=== PATIENT | female | born 1965 | race Caucasian/White ===

== ENCOUNTER → 2016-07-21 | Outpatient (CLI) | payer OTHER ==
--- NOTE | 2016-07-22 08:32 | REP ---
PELVIC, NON-OB COMPLETE ULTRASOUND: HISTORY: (Two breast CA and pelvic pain). COMPARISON: 11/27/2012, the latest prior. Transvesical and transvaginal imaging was obtained. The uterus measures 6.8 x 3.6 x 5.5 cm. The parenchymal echo pattern is heterogeneous, but there are no discrete masses. The endometrial echo complex measures 9 mm in thickness and is heterogeneous in appearance. There is no free fluid in the cul-de-sac. The right ovary measures 5 x 2.9 x 3 cm. Within the substance of the right ovary there is a 3.8 x 2.4 x 2.5 cm sized anechoic structure which exhibits posterior wall enhancement and increased through transmission consistent with a cyst. No definite septations, mural nodules or papular projections noted. The left ovary measures 3.2 x 1.9 x 2.5 cm. In the substance of the left ovary, there is a 2 x 1.4 x 1.7 cm sized anechoic structure which exhibits posterior wall enhancement and increased through transmission without evidence of septations, mural nodules or papular projections. IMPRESSION: 1. The endometrial echo complex is abnormally thickened. Clinical correlation is recommended. 2. Bilateral ovarian cysts. Two month followup recommended.
== END ==
LOC: M WHC 10:49
PROVIDERS: ATTEND Physician Assistant
DX: R93.8 Abnormal findings on diagnostic imaging of other specified body structures (principal); N83.209 Unspecified ovarian cyst, unspecified side

== ENCOUNTER → 2016-10-06 | Outpatient (CLI) | payer OTHER ==
--- NOTE | 2016-10-06 15:32 | REP ---
Lumbar spine series: Five views. History: Low back pain. Findings: Lumbar vertebral body heights are preserved. Alignment is normal. There is degenerative narrowing and spur formation at the L4-5 and to a lesser extent L3-4, L2-3 and L1-2 levels. Discogenic spurring is seen in the lower thoracic levels as well. Pedicles and posterior elements are intact. There is no evidence of spondylolysis or spondylolisthesis. There is mild sacralization of the left transverse process at L5. Psoas margins are symmetric. Sacrum and SI joints are unremarkable. Impression: Degenerative spondylosis changes. Degenerative disc disease most pronounced at L4-5. Signed by Mohamud Alcala MD 10/06/2016 04:34 P
--- NOTE | 2016-10-06 15:54 | REP ---
SI joint series: Five views. History: Low back and left groin pain. Findings: Five views of the sacrum and SI joints demonstrate intact SI joints. No bony sacral disruption or fracture is seen. No erosive change is noted. Impression: Negative sacrum and SI joint views. Signed by Mohamud Alcala MD 10/06/2016 04:34 P
== END ==
LOC: M WUC 13:34
PROVIDERS: ATTEND Nurse Practitioner Family
DX: M51.36 Other intervertebral disc degeneration, lumbar region (principal); M47.816 Spondylosis without myelopathy or radiculopathy, lumbar region

== ENCOUNTER → 2016-10-16 | Outpatient (CLI) | payer OTHER ==
--- NOTE | 2016-10-16 16:03 | REPMRS ---
Patient History Patient has history of cancer in the right breast at age 50 and had first child at age 32. Family history of breast cancer in mother at age 56, breast cancer in maternal aunt at age 50 or over, breast cancer in paternal aunt at age 50 or over, and pancreatic cancer in paternal aunt at age 50 or over. Malignant radio exam breast specimen, January 13, 2016. Malignant localization of breast nodule of the right breast, January 13, 2016. Malignant radio exam breast specimen of the right breast, December 30, 2015. Malignant stereotatic loc for ea lesion of the right breast, December 30, 2015. Digital Mammo Diagnostic Bilateral: October 16, 2016 - Exam #: [id number] Bilateral CC and MLO view(s) were taken. Technologist: Faby Sharp, Technologist Prior study comparison: December 02, 2015, right breast digital mammo diagnostic unilateral performed at [facility]. November 29, 2015, digital woman screen mammo, performed at [facility]. November 26, 2012, digital woman screen mammo, performed at [facility]. FINDINGS: There are scattered fibroglandular densities. There is a mild amount of residual fibroglandular tissue which is fairly symmetric. There is no interval development of dominant mass, architectural distortion, or clustered microcalcification suggestive of malignancy. The prior anterior right breast calcifications which were malignant on biopsy are no longer visible. No significant scar tissue, skin thickening or any secondary signs of malignancy. Scattered lymph nodes are seen in the left axilla. ASSESSMENT: BI-RADS/ACR category 2 mammogram. Benign finding(s). Recommendation Routine screening mammogram in 1 year (for women over age 40). This mammogram was interpreted with the aid of an FDA-approved computer-aided dectection system. A. Negative x-ray reports should not delay biopsy if a dominant or clinically suspicious mass is present. B. Four to eight percent of cancers are not identified by mammography. C. Adenosis and dense breast may obscure an underlying neoplasm. Electronically Signed By: Oh Hernandez MD 10/16/16 [id number]
== END ==
LOC: M RAD 15:26
PROVIDERS: ATTEND Surgery
DX: Z12.39 Encounter for other screening for malignant neoplasm of breast (principal); Z85.3 Personal history of malignant neoplasm of breast; Z80.3 Family history of malignant neoplasm of breast

== ENCOUNTER → 2016-12-02 | Outpatient (CLI) | payer OTHER ==
[2016-12-02 18:43] LABS: BASO % 0.6 % (0.0-1.0); EOS # 0.1 K/mm3 (0.0-0.50); EOS % 1.4 % (0.0-3.0); LARGE UNSTAINED CELL # 0.3 K/mm3 (0.0-0.4); LARGE UNSTAINED CELL % 3.4 % (0.0-4.0); LYMPH # 3.7 K/mm3 (1.5-4.5); LYMPH % 47.6 % (24.0-44.0); MEAN CORPUSCULAR HEMOGLOBIN 29.3 pg (27.0-33.0); MEAN CORPUSCULAR HGB CONC 34.5 g/dl (32.0-36.5); MEAN CORPUSCULAR VOLUME 85.1 fl (80.0-96.0); MONO # 0.4 K/mm3 (0.0-0.8); MONO % 5.5 % (0.0-5.0); NEUTROPHILS # 3.2 K/mm3 (1.8-7.7); NEUTROPHILS % 41.5 % (36.0-66.0); PLATELET COUNT, AUTOMATED 322 k/mm3 (150-450); RED CELL DISTRIBUTION WIDTH 13.1 % (11.5-14.5); WHITE BLOOD COUNT 7.8 K/mm3 (4.0-10.0)
[2016-12-02 19:28] LABS: ALBUMIN/GLOBULIN RATIO 1.03 (1.00-1.93); ALKALINE PHOSPHATASE 40 U/L (45-117); ALT/SGPT 45 U/L (12-78); ANION GAP 9 MEQ/L (8-16); AST/SGOT 15 U/L (15-37); BILIRUBIN,TOTAL 0.3 MG/DL (0.2-1.0); BLOOD UREA NITROGEN 15 MG/DL (7-18); CARBON DIOXIDE LEVEL 29 MEQ/L (21-32); CHLORIDE LEVEL 107 MEQ/L (98-107); CREATININE FOR GFR 0.79 MG/DL (0.55-1.02); FERRITIN 181 NG/ML (8-252); GLOMERULAR FILTRATION RATE > 60.0 (>51); GLUCOSE, FASTING 107 MG/DL (70-105); MAGNESIUM LEVEL 1.8 MG/DL (1.8-2.4); PERCENT SATURATION 28.7 % (13.2-45.0); PHOSPHORUS LEVEL 3.2 MG/DL (2.5-4.9); POTASSIUM SERUM 4.4 MEQ/L (3.5-5.1); SODIUM LEVEL 145 MEQ/L (136-145); TOTAL IRON BINDING CAPACITY 265 UG/DL (250-450); TOTAL PROTEIN 7.9 GM/DL (6.4-8.2)
[2016-12-04 10:01] LABS: VITAMIN B12 LEVEL 538 PG/ML (247-911)
[2016-12-05 10:49] LABS: PRETREATED FOLATE FOR RBCFOL 12.1 NG/ML
== END ==
LOC: M WUC 13:42
PROVIDERS: ATTEND Surgery
DX: K91.2 Postsurgical malabsorption, not elsewhere classified (principal); Z98.84 Bariatric surgery status

== ENCOUNTER → 2017-05-05 | Outpatient (CLI) | payer OTHER ==
[2017-05-05 11:55] LABS: BASO % 0.5 % (0.0-1.0); EOS # 0.1 10^3/uL (0.0-0.50); EOS % 1.6 % (0.0-3.0); HEMATOCRIT 43.3 % (36.0-47.0); HEMOGLOBIN 14.6 g/dl (12.0-16.0); IMMATURE GRANULOCYTE % 0.1 % (0-3.0); LYMPH # 3.4 10^3/uL (1.5-4.5); LYMPH % 43.1 % (24.0-44.0); MEAN CORPUSCULAR HEMOGLOBIN 28.9 pg (27.0-33.0); MEAN CORPUSCULAR HGB CONC 33.7 g/dl (32.0-36.5); MEAN CORPUSCULAR VOLUME 85.7 fl (80.0-96.0); MONO # 0.7 10^3/uL (0.0-0.8); MONO % 8.6 % (0.0-5.0); NEUTROPHILS # 3.6 10^3/uL (1.8-7.7); NEUTROPHILS % 46.1 % (36.0-66.0); PLATELET COUNT, AUTOMATED 238 10^3/uL (150-450); RED BLOOD COUNT 5.05 10^6/uL (4.00-5.40); RED CELL DISTRIBUTION WIDTH 13.4 % (11.5-14.5); WHITE BLOOD COUNT 7.9 10^3/uL (4.0-10.0)
[2017-05-05 12:03] LABS: HEMATOCRIT 43.3 % (36.0-47.0)
[2017-05-05 12:08] LABS: ALBUMIN/GLOBULIN RATIO 1.05 (1.00-1.93); ALKALINE PHOSPHATASE 64 U/L (45-117); ALT/SGPT 20 U/L (12-78); ANION GAP 9 MEQ/L (8-16); AST/SGOT 9 U/L (7-37); BILIRUBIN,TOTAL 0.3 MG/DL (0.2-1.0); BLOOD UREA NITROGEN 12 MG/DL (7-18); CARBON DIOXIDE LEVEL 29 MEQ/L (21-32); CHLORIDE LEVEL 107 MEQ/L (98-107); CREATININE FOR GFR 0.76 MG/DL (0.55-1.30); FERRITIN 57 NG/ML (8-252); GLOMERULAR FILTRATION RATE > 60.0 (>51); GLUCOSE, FASTING 84 MG/DL (70-100); IRON (FE) 95 UG/DL (50-170); MAGNESIUM LEVEL 2.2 MG/DL (1.8-2.4); PERCENT SATURATION 31.8 % (13.2-45.0); PHOSPHORUS LEVEL 3.6 MG/DL (2.5-4.9); POTASSIUM SERUM 4.3 MEQ/L (3.5-5.1); SODIUM LEVEL 145 MEQ/L (136-145); TOTAL IRON BINDING CAPACITY 299 UG/DL (250-450); TOTAL PROTEIN 7.8 GM/DL (6.4-8.2)
[2017-05-05 12:16] LABS: ESTIMATED AVERAGE GLUCOSE 105 MG/DL (60-110); HEMOGLOBIN A1c 5.3 %
[2017-05-07 11:11] LABS: TOTAL 25(OH) VITAMIN D 27.8 NG/ML (30.0-100.0); VITAMIN B12 LEVEL 439 PG/ML (247-911)
[2017-05-08 11:03] LABS: PRETREATED FOLATE FOR RBCFOL 13.2 NG/ML; RBC FOLATE 640.2 NG/ML (280-791)
== END ==
LOC: M WUC 09:56
DX: K91.2 Postsurgical malabsorption, not elsewhere classified (principal); Z98.84 Bariatric surgery status; E55.9 Vitamin D deficiency, unspecified
CPT/HCPCS: 83550

== ENCOUNTER → 2017-12-07 | Outpatient (CLI) | payer OTHER ==
[2017-12-07 16:00] LABS: BASO % 0.4 % (0.0-1.0); EOS # 0.1 10^3/uL (0.0-0.50); EOS % 1.5 % (0.0-3.0); HEMOGLOBIN 13.9 g/dl (12.0-15.5); IMMATURE GRANULOCYTE % 0.1 % (0-3.0); LYMPH # 4.5 10^3/uL (1.5-4.5); LYMPH % 55.3 % (24.0-44.0); MEAN CORPUSCULAR HEMOGLOBIN 28.8 pg (27.0-33.0); MEAN CORPUSCULAR HGB CONC 33.1 g/dl (32.0-36.5); MEAN CORPUSCULAR VOLUME 87.1 fl (80.0-96.0); MONO # 0.6 10^3/uL (0.0-0.8); MONO % 7.3 % (0.0-5.0); NEUTROPHILS # 2.9 10^3/uL (1.8-7.7); NEUTROPHILS % 35.4 % (36.0-66.0); PLATELET COUNT, AUTOMATED 325 10^3/uL (150-450); RED BLOOD COUNT 4.82 10^6/uL (4.00-5.40); RED CELL DISTRIBUTION WIDTH 13.1 % (11.5-14.5); WHITE BLOOD COUNT 8.1 10^3/uL (4.0-10.0)
[2017-12-07 16:33] LABS: ESTIMATED AVERAGE GLUCOSE 100 MG/DL (60-110); HEMOGLOBIN A1c 5.1 %
[2017-12-07 16:39] LABS: ALKALINE PHOSPHATASE 71 U/L (45-117); ALT/SGPT 18 U/L (12-78); ANION GAP 12 MEQ/L (8-16); AST/SGOT 20 U/L (7-37); BILIRUBIN,TOTAL 0.5 MG/DL (0.2-1.0); BLOOD UREA NITROGEN 15 MG/DL (7-18); CARBON DIOXIDE LEVEL 25 MEQ/L (21-32); CHLORIDE LEVEL 107 MEQ/L (98-107); CREATININE FOR GFR 0.73 MG/DL (0.55-1.30); FERRITIN 64 NG/ML (8-252); GLOMERULAR FILTRATION RATE > 60.0 (>51); GLUCOSE, FASTING 87 MG/DL (70-100); IRON (FE) 74 UG/DL (50-170); MAGNESIUM LEVEL 1.9 MG/DL (1.8-2.4); PERCENT SATURATION 23.6 % (13.2-45.0); PHOSPHORUS LEVEL 3.9 MG/DL (2.5-4.9); POTASSIUM SERUM 4.7 MEQ/L (3.5-5.1); SODIUM LEVEL 144 MEQ/L (136-145); TOTAL 25(OH) VITAMIN D 18.7 NG/ML (30.0-100.0); TOTAL IRON BINDING CAPACITY 313 UG/DL (250-450)
[2017-12-11 13:36] LABS: PRETREATED FOLATE FOR RBCFOL 8.1 NG/ML
== END ==
LOC: M LAB 15:17
DX: K91.2 Postsurgical malabsorption, not elsewhere classified (principal)
CPT/HCPCS: 83550

== ENCOUNTER → 2018-05-16 | Outpatient (CLI) | payer OTHER ==
--- NOTE | 2018-05-16 14:49 | REP ---
Whole body radionuclide bone scan: History: Carcinoma of the right breast. Metastatic to axillary lymph nodes. Technique: 21.1 mCi of technetium 99m MDP is injected and standard whole body bone scan images are acquired. Scintigraphic findings: There is a normal distribution of skeletal tracer with uptake to bilateral kidneys and the urinary bladder. There is no evidence to suggest skeletal metastatic disease. Impression: Negative whole body bone scan. Electronically Signed by Mohamud Alcala MD 05/16/2018 04:33 P
== END ==
LOC: M RAD 08:05
PROVIDERS: ATTEND Surgery
DX: C50.911 Malignant neoplasm of unspecified site of right female breast (principal); C77.3 Secondary and unspecified malignant neoplasm of axilla and upper limb lymph nodes
CPT/HCPCS: 78306; A9503

== ENCOUNTER → 2018-07-17 | Outpatient (CLI) | payer OTHER ==
[2018-07-17 10:16] LABS: BASO # 0.1 10^3/uL (0.0-0.2); BASO % 1.6 % (0.0-1.0); EOS % 0.5 % (0.0-3.0); HEMATOCRIT 38.7 % (36.0-47.0); HEMOGLOBIN 12.8 g/dl (12.0-15.5); LYMPH # 2.7 10^3/uL (1.5-4.5); LYMPH % 33.1 % (24.0-44.0); MEAN CORPUSCULAR HEMOGLOBIN 28.8 pg (27.0-33.0); MEAN CORPUSCULAR HGB CONC 33.1 g/dl (32.0-36.5); MONO # 1.1 10^3/uL (0.0-0.8); MONO % 13.1 % (0.0-5.0); NEUTROPHILS # 4.2 10^3/uL (1.8-7.7); NEUTROPHILS % 51.2 % (36.0-66.0); PLATELET COUNT, AUTOMATED 396 10^3/uL (150-450); RED BLOOD COUNT 4.45 10^6/uL (4.00-5.40); WHITE BLOOD COUNT 8.1 10^3/uL (4.0-10.0)
[2018-07-17 10:44] LABS: ALBUMIN 3.9 GM/DL (3.2-5.2); ALT/SGPT 30 U/L (12-78); BILIRUBIN,TOTAL 0.3 MG/DL (0.2-1.0); BLOOD UREA NITROGEN 16 MG/DL (7-18); CALCIUM LEVEL 8.8 MG/DL (8.5-10.1); CARBON DIOXIDE LEVEL 29 MEQ/L (21-32); CHLORIDE LEVEL 107 MEQ/L (98-107); CREATININE FOR GFR 0.71 MG/DL (0.55-1.30); GLOMERULAR FILTRATION RATE > 60.0 (>51); GLUCOSE, FASTING 83 MG/DL (70-100); POTASSIUM SERUM 4.4 MEQ/L (3.5-5.1); SODIUM LEVEL 142 MEQ/L (136-145); TOTAL PROTEIN 6.9 GM/DL (6.4-8.2)
== END ==
LOC: M LAB 09:21
PROVIDERS: ATTEND Nurse Practitioner
DX: C50.111 Malignant neoplasm of central portion of right female breast (principal)

== ENCOUNTER → 2018-08-07 | Outpatient (CLI) | payer OTHER ==
[2018-08-07 09:33] LABS: BASO # 0.1 10^3/uL (0.0-0.2); BASO % 1.5 % (0.0-1.0); HEMOGLOBIN 12.7 g/dl (12.0-15.5); LYMPH % 24.5 % (24.0-44.0); MEAN CORPUSCULAR HEMOGLOBIN 30.4 pg (27.0-33.0); MEAN CORPUSCULAR HGB CONC 33.4 g/dl (32.0-36.5); MEAN CORPUSCULAR VOLUME 90.9 fl (80.0-96.0); MONO # 1.2 10^3/uL (0.0-0.8); MONO % 13.9 % (0.0-5.0); NEUTROPHILS # 4.9 10^3/uL (1.8-7.7); NEUTROPHILS % 59.6 % (36.0-66.0); PLATELET COUNT, AUTOMATED 268 10^3/uL (150-450); RED BLOOD COUNT 4.18 10^6/uL (4.00-5.40); WHITE BLOOD COUNT 8.3 10^3/uL (4.0-10.0)
[2018-08-07 10:01] LABS: ALBUMIN 3.5 GM/DL (3.2-5.2); ALT/SGPT 24 U/L (12-78); BILIRUBIN,TOTAL 0.3 MG/DL (0.2-1.0); BLOOD UREA NITROGEN 11 MG/DL (7-18); CALCIUM LEVEL 8.8 MG/DL (8.5-10.1); CARBON DIOXIDE LEVEL 29 MEQ/L (21-32); CHLORIDE LEVEL 106 MEQ/L (98-107); CREATININE FOR GFR 0.72 MG/DL (0.55-1.30); GLOMERULAR FILTRATION RATE > 60.0 (>51); GLUCOSE, FASTING 89 MG/DL (70-100); POTASSIUM SERUM 4.8 MEQ/L (3.5-5.1); SODIUM LEVEL 141 MEQ/L (136-145); TOTAL PROTEIN 6.6 GM/DL (6.4-8.2)
== END ==
LOC: M LAB 08:53
DX: C50.111 Malignant neoplasm of central portion of right female breast (principal)

== ENCOUNTER → 2018-08-28 | Outpatient (CLI) | payer OTHER ==
[2018-08-28 10:04] LABS: BASO # 0.1 10^3/uL (0.0-0.2); BASO % 0.8 % (0.0-1.0); HEMATOCRIT 36.4 % (36.0-47.0); HEMOGLOBIN 11.6 g/dl (12.0-15.5); LYMPH # 1.9 10^3/uL (1.5-4.5); LYMPH % 19.3 % (24.0-44.0); MEAN CORPUSCULAR HEMOGLOBIN 29.4 pg (27.0-33.0); MEAN CORPUSCULAR HGB CONC 31.9 g/dl (32.0-36.5); MEAN CORPUSCULAR VOLUME 92.2 fl (80.0-96.0); MONO # 1.1 10^3/uL (0.0-0.8); MONO % 11.7 % (0.0-5.0); NEUTROPHILS # 6.5 10^3/uL (1.8-7.7); NEUTROPHILS % 67.9 % (36.0-66.0); PLATELET COUNT, AUTOMATED 312 10^3/uL (150-450); RED BLOOD COUNT 3.95 10^6/uL (4.00-5.40); WHITE BLOOD COUNT 9.6 10^3/uL (4.0-10.0)
[2018-08-28 10:29] LABS: ALBUMIN 3.5 GM/DL (3.2-5.2); ALT/SGPT 15 U/L (12-78); BILIRUBIN,TOTAL 0.3 MG/DL (0.2-1.0); BLOOD UREA NITROGEN 14 MG/DL (7-18); CALCIUM LEVEL 9.1 MG/DL (8.5-10.1); CARBON DIOXIDE LEVEL 29 MEQ/L (21-32); CHLORIDE LEVEL 108 MEQ/L (98-107); CREATININE FOR GFR 0.63 MG/DL (0.55-1.30); GLOMERULAR FILTRATION RATE > 60.0 (>51); GLUCOSE, FASTING 87 MG/DL (70-100); POTASSIUM SERUM 4.6 MEQ/L (3.5-5.1); SODIUM LEVEL 143 MEQ/L (136-145)
== END ==
LOC: M LAB 09:31
PROVIDERS: ATTEND Nurse Practitioner
DX: C50.111 Malignant neoplasm of central portion of right female breast (principal)

== ENCOUNTER → 2018-08-28 | Outpatient (CLI) | payer OTHER ==
[2018-08-28 10:25] LABS: HEMOGLOBIN A1c 5.6 %
[2018-08-28 10:32] LABS: CHOLESTEROL LEVEL 189 MG/DL (<200); CHOLESTEROL RISK RATIO 3.705 (<5); FERRITIN 181 NG/ML (8-252); HDL CHOLESTEROL 51 MG/DL (>40); IRON (FE) 39 UG/DL (50-170); LDL CHOLESTEROL 118 MG/DL (<100); NON-HDL-C 138 MG/DL; TRIGLYCERIDES LEVEL 102 MG/DL (<150)
[2018-08-28 10:49] LABS: TOTAL 25(OH) VITAMIN D 23.6 NG/ML (30.0-100.0)
[2018-08-28 11:18] LABS: VITAMIN B12 LEVEL > 2000 PG/ML (247-911)
== END ==
LOC: M LAB 09:24
PROVIDERS: ATTEND Nurse Practitioner Family
DX: Z00.00 Encounter for general adult medical examination without abnormal findings (principal); Z98.84 Bariatric surgery status

== ENCOUNTER → 2018-09-17 | Outpatient (CLI) | payer OTHER ==
[~2018-09-17] MED LIST: SILV40CR EXT
--- NOTE | 2018-09-18 11:00 | RADONC ---
RADIATION ONCOLOGY CONSULTATION DATE: 09/17/2018 CHART NUMBER: [id number] DIAGNOSIS: Infiltrating ductal carcinoma, right breast, status post right modified radical mastectomy; status post simple mastectomy, left. The patient was noted to be ER positive (05/02/2018). STAGE: [id number], group stage IA. ICD-10 CODE: C50.111 ECOG PERFORMANCE STATUS: 0 The patient was noted to be BRCA2 positive. 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 She went on to develop a mass in the right breast as she was being followed every 6 months with an MRI scan and mammography. An ultrasound confirmed the presence of an abnormality in the subareolar area or the central portion of the right breast and she underwent a bilateral mastectomy. The surgery was actually a modified radical right mastectomy as well as a simple left mastectomy as the patient was noted to be BRCA2 positive. These surgeries were performed in April of this year and the patient was noted to have a lymph node which was positive. A total of 12 lymph nodes were examined, but one contained a metastatic focus or contained evidence of metastatic disease. She underwent chemotherapy in the form of docetaxel and cyclophosphamide for approximately four cycles and this was performed at the [facility]. She has a very strong history of cancer in her family including her father with liver cancer, uncles with pancreatic cancer, an aunt with pancreatic cancer on both sides of the family. She was being followed by Dr. Ariana Ramos in [place]. She completed the chemotherapy and did quite well with the chemotherapy with only a minimal amount of changes including some nail bed tenderness and changes. She did not have any significant neuropathy or significant nausea or vomiting. After the completion of her chemotherapy, she has been referred to us for evaluation of chest wall and peripheral lymphatic radiation to prevent a local regional recurrence. 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 SURGICAL PROCEDURES: Gastric sleeve in 2017 at the age of 50. Hysterectomy 07/2017 at the age of 51. Mastectomy on 05/22/2018 at the age of 52. GYNECOLOGIC HISTORY: She used hormonal oral contraceptives for 12 years. : She is not one time and gave at the age of 32. Her first menstrual period was at the age of 11. SOCIAL HISTORY: She has quit smoking for approximately 3 years, but smoked one pack per day for 27 years. Alcohol consumption: She never has consumed alcohol. ALLERGIES: No known drug allergies. MEDICATIONS: She currently does not take any regular medications. MARITAL HISTORY: She is and has one child who is healthy. OCCUPATIONAL HISTORY: She works as a biomedical instrument technician. REVIEW OF SYSTEMS: RESPIRATORY: Denies coughing, dyspnea, hemoptysis, hiccups, pleuritic pain or wheezing. PSYCHIATRIC: Denies delusions, hallucination mood swings, depression or euphoria. NEUROLOGIC: Denies disorientation, dizziness. She has a normal gait. Denies having headaches, insomnia, memory loss, neuropathy, paralysis, seizures, sensory problems or a stroke. MUSCULOSKELETAL: Denies arthritis, bone pain, joint pain, muscle weakness or difficulty with range of motion. INTEGUMENTARY: Denies blisters. She does note complete alopecia secondary to her chemotherapy. Denies any bruising, dry skin, facial burning. She has tenderness in her fingernails was some discoloration. She denies photosensitivity, pruritus or significant rash or urticaria. HEAD: She does note alopecia. GENITOURINARY: She denies dysuria, frequency, genital masses, hematuria, incontinence, nocturia, renal stone disease, sexual dysfunction, urgency, changes in urine color, vaginal discharge or vaginal spotting. GASTROINTESTINAL: Denies changes in her bowel habits, constipation, diarrhea, heartburn, hematemesis, hematochezia, hemorrhoids, melena, nausea, pain, early satiety or vomiting. ENT: Denies ear pain, epistaxis, esophagitis, decreased hearing, mouth dryness, oral bleeding, otitis, sinusitis, sputum production, stomatitis, alteration of taste or tinnitus. ENDOCRINE: Denies diabetes, hot flashes, menstrual irregularities or thyroid disease. CONSTITUTIONAL: Denies decreased appetite or fatigue, fevers, lethargy, malaise, night sweats, rigors or weight change. CARDIOVASCULAR: Denies arrhythmias chest pain, dyspnea, edema, orthopnea or palpitations. BREASTS: She has had a bilateral mastectomy, see HPI. PHYSICAL EXAMINATION: VITALS: O2 saturation 99%. Diastolic 87, systolic 143, respirations 18, pulse 82, temperature 98.3, weight 185.6, height 63. HEENT: Normocephalic except for alopecia. EOMs intact. PERRLA. Fundi benign. LYMPHATICS: No palpable peripheral lymphadenopathy is noted in the cervical, supraclavicular, axillary or inguinal lymph node chains. LUNGS: Clear to auscultation and percussion. BREASTS: Bilateral mastectomy with no evidence of local regional recurrence. The incisions are well-healed. LUNGS: Clear to auscultation and percussion. HEART: Regular without murmurs. ABDOMEN: Without evidence of hepatomegaly, masses, deep abdominal tenderness. EXTREMITIES: Without cyanosis, clubbing or edema. NEUROLOGIC EXAMINATION: Physiologic and nonfocal. LYMPHATICS: No palpable peripheral lymphadenopathy is appreciated. IMPRESSION: Infiltrating ductal carcinoma, right breast with a 1.3 cm primary she is status post right modified radical mastectomy and 12 lymph nodes were recovered, one of which contained evidence of metastatic disease. There was evidence that the tumor was a grade 2 without skin or nipple involvement. Extranodal extension was present. The left breast was removed for prophylactic considerations being that the patient was at high risk. The primary tumor was located in the retroareolar area, pathologic stage [id number]. PLAN: We would recommend a course of local regional radiotherapy to be given in an adjuvant setting following her chemotherapy. We would be treating both the chest wall and peripheral lymphatics to a dose of approximately 4800 cGy to 5040 cGy as well as the lymph node sites. Thereafter, consideration will be given to boost the primary scar site on the right chest wall. The indications, possible side effects of radiotherapy have been explained in detail to the patient including acute and chronic skin toxicities, increased possibility of rib fractures (remote), radiation pneumonitis, fatigue, and possible failure to control tumor. She realizes the potential side effects and possibilities of outcome and is willing to proceed as outlined as stated above. Thank you for referring this very ledy lady to us and allowing us the opportunity of participation in her overall management. Most Sincerely, JOSEMANUEL
== END ==
LOC: M ONCR 12:39
PROVIDERS: ATTEND Radiology Radiation Oncology
DX: C77.3 Secondary and unspecified malignant neoplasm of axilla and upper limb lymph nodes (principal); Z85.3 Personal history of malignant neoplasm of breast; Z90.13 Acquired absence of bilateral breasts and nipples

== ENCOUNTER → 2018-10-02 | Outpatient (CLI) | payer OTHER ==
[2018-10-02 09:44] LABS: BASO # 0.1 10^3/uL (0.0-0.2); BASO % 1.2 % (0.0-1.0); EOS % 0.2 % (0.0-3.0); HEMATOCRIT 38.4 % (36.0-47.0); HEMOGLOBIN 12.1 g/dl (12.0-15.5); LYMPH # 1.6 10^3/uL (1.5-4.5); LYMPH % 39.5 % (24.0-44.0); MEAN CORPUSCULAR HEMOGLOBIN 28.6 pg (27.0-33.0); MEAN CORPUSCULAR HGB CONC 31.5 g/dl (32.0-36.5); MEAN CORPUSCULAR VOLUME 90.8 fl (80.0-96.0); MONO # 0.6 10^3/uL (0.0-0.8); NEUTROPHILS # 1.8 10^3/uL (1.8-7.7); NEUTROPHILS % 43.6 % (36.0-66.0); PLATELET COUNT, AUTOMATED 280 10^3/uL (150-450); RED BLOOD COUNT 4.23 10^6/uL (4.00-5.40); WHITE BLOOD COUNT 4.1 10^3/uL (4.0-10.0)
[2018-10-02 10:11] LABS: ALBUMIN 3.8 GM/DL (3.2-5.2); ALT/SGPT 18 U/L (12-78); BILIRUBIN,TOTAL 0.3 MG/DL (0.2-1.0); BLOOD UREA NITROGEN 16 MG/DL (7-18); CALCIUM LEVEL 9.3 MG/DL (8.5-10.1); CARBON DIOXIDE LEVEL 30 MEQ/L (21-32); CHLORIDE LEVEL 109 MEQ/L (98-107); CREATININE FOR GFR 0.71 MG/DL (0.55-1.30); GLOMERULAR FILTRATION RATE > 60.0 (>51); GLUCOSE, FASTING 89 MG/DL (70-100); POTASSIUM SERUM 4.9 MEQ/L (3.5-5.1); SODIUM LEVEL 142 MEQ/L (136-145)
== END ==
LOC: M LAB 08:47
PROVIDERS: ATTEND Internal Medicine
DX: C50.111 Malignant neoplasm of central portion of right female breast (principal)

== ENCOUNTER → 2018-10-16 | Outpatient (RCR) | payer OTHER ==
--- NOTE | 2018-09-29 12:38 | RADONC ---
RADIATION ONCOLOGY SIMULATION NOTE DATE OF SERVICE: 09/27/2018 CHART NUMBER: [id number] Ms. Jimenez was taken to the CT scan for CT simulation of her right chest wall field and supraclavicular region. CT was accomplished without difficulty or discomfort. Radiation treatment planning is underway and radiation treatments will begin subsequently. An immobilization device was created and will be used throughout the course of treatment. It was created without difficulty or discomfort. I was physically present throughout the course of CT simulation.
--- NOTE | 2018-10-15 10:51 | RADONC ---
RADIATION ONCOLOGY PROGRESS NOTE: DATE: 10/14/2018 CHART NUMBER: [id number] Ms. Jimenez is thus far at a dose of 720 cGy to her right chest wall and was last treated on Sunday10/11/2018. The patient did not come in for treatment today due to personal issues. As of Sunday she had been tolerating her treatments quite well with no complaints related to her radiation therapy. On physical exam as of Sunday the patient's skin was in excellent condition with no evidence of radiation change present. There was no moist or dry desquamation. The patient is scheduled to resume radiation tomorrow and we will continue to follow her closely.
== END ==
LOC: M ONCR 09-27 10:47
PROVIDERS: ATTEND Radiology Radiation Oncology
DX: C50.111 Malignant neoplasm of central portion of right female breast (principal)

== ENCOUNTER → 2018-11-01 | Outpatient (CLI) | payer OTHER ==
--- NOTE | 2018-11-04 09:43 | DEXA ---
AP SPINE L1 - L4 1.254 0.5 1.1 LT FEMUR TOTAL 0.895 -0.9 -0.3 LT NECK 0.880 -1.1 -0.2 RT FEMUR TOTAL -0.933 -0.6 0.3 RT NECK 0.908 -0.9 0.0 TOTAL BODY TOTAL OTHER COMMENTS: Normal bone densitometry of the spine. Normal bone densitometry of the right hip. There is low bone density of the left hip. FOLLOW-UP: Recommendation for the next bone density exam: 2 years. JOSEMANUEL
== END ==
LOC: M WHC 08:45
PROVIDERS: ATTEND Internal Medicine
DX: C50.111 Malignant neoplasm of central portion of right female breast (principal)

== ENCOUNTER 2018-11-12 13:00 | Outpatient (RCR) | payer OTHER ==
--- NOTE | 2018-10-22 08:22 | RADONC ---
RADIATION ONCOLOGY PROGRESS NOTE DATE: 10/21/2018 CHART #: [id number] Mrs. Jimenez with a diagnosis of infiltrating ductal carcinoma involving the right breast status post right modified radical mastectomy is currently receiving adjuvant radiotherapy. Her current dose is 1620 cGy of a proposed 4860 cGy to the chest wall and peripheral lymphatics and she appears to be doing well with no complaints referable to her disease or to her treatments. REVIEW OF SYSTEMS: She denies any nausea, vomiting, coughing, sputum production or hemoptysis. Her energy level is such that she is able to maintain most day-to-day activities without any alteration of her lifestyle. She denies any skin reaction. The remainder of the review of systems is unchanged. EXAMINATION FINDINGS: The skin within the irradiated volume shows no evidence of erythema and certainly no focal desquamation. There is no palpable peripheral lymphadenopathy. No evidence of chest wall recurrence is noted. The remainder of the physical examination is unchanged. IMPRESSION: Tolerating therapy well. PLAN: Treatments to continue.
--- NOTE | 2018-10-30 10:16 | RADONC ---
RADIATION ONCOLOGY PROGRESS NOTE DATE OF SERVICE: 10/28/2018 CHART #: [id number] Mrs. Jimenez with a diagnosis of an infiltrating ductal carcinoma involving the right breast status post right modified radical mastectomy is currently receiving radiotherapy and her current dose of radiotherapy is 2520 cGy of a proposed 5040 cGy and reevaluate as to a boost. She is being treated to the chest wall and peripheral lymphatics. Thus far, she has no complaints referable to her disease or to her treatments. REVIEW OF SYSTEMS: She denies any nausea, vomiting, coughing, sputum production or hemoptysis. Her energy level is such that she is able to maintain most day-to-day activities without any alteration of her lifestyle. She mentions hyperpigmentation and a very minimal skin reaction secondary to the radiotherapy. The remainder of the review of systems is unchanged. EXAMINATION FINDINGS: The skin within the irradiated volume shows some hyperpigmentation and a minimal erythematous blush without evidence of desquamation. No masses are palpable on the chest wall and there is no palpable peripheral lymphadenopathy. The remainder of the physical examination is unchanged. IMPRESSION: Tolerating therapy well. PLAN: Treatments to continue.
--- NOTE | 2018-11-07 09:42 | RADONC ---
RADIATION ONCOLOGY PROGRESS NOTE DATE: 11/04/2018 CHART NUMBER: [id number] Ms. Jimenez is presently at a dose of 3420 cGy to her right chest wall and is tolerating treatments quite well at this point with no complaints related to her radiation therapy. She is having no skin or other discomfort. The patient's review of systems is noncontributory. She denies nausea, vomiting, fevers, chills, night sweats, diplopia, headaches, anxiety or depression, anorexia, weight loss, visual disturbances, chest pain, urinary or bowel difficulties, bone pain, or neurological problems. PHYSICAL EXAMINATION: The patient's skin is in good condition with no evidence of moist or dry desquamation. The remainder of her physical exam remains unchanged. Ms. Jimenez is tolerating treatments quite well, and radiation will continue as scheduled.
[2018-11-12] MEDS ORDERED: SILV40CR EXT (15:03)
--- NOTE | 2018-11-13 08:33 | RADONC ---
RADIATION ONCOLOGY PROGRESS NOTE DATE: 11/11/2018 CHART NUMBER: [id number] Ms. Jimenez is thus far at a dose of 4140 cGy to her right chest wall and was last treated on 11/07/2018. The patient was scheduled to come in today but cancelled her treatment for personal reasons. We should be seeing her tomorrow. As of last week, she had been doing quite well with her radiation. Her skin was in good condition. Once again, the patient did not show up for treatment today and should resume treatments tomorrow.
--- NOTE | 2018-11-14 09:11 | RADONC ---
RADIATION ONCOLOGY PROGRESS NOTE DATE: 11/12/2018 CHART NUMBER: [id number] Ms. Jimenez was brought in for clinical setup and treatment planning of her electron boost. The patient came in complaining of discomfort in her axillary region and on physical exam there are some areas of dried and moist desquamation present. In light of this, I have recommended that she take a short treatment break and I am giving her off this week. Radiation scheduled to resume next week. I have cancelled her electron setup simulation at this time and it will be rescheduled for next week. In addition, I have sent a prescription for Silvadene to be applied topically.
== END 2018-11-16 ==
LOC: M ONCR 13:00
PROVIDERS: ATTEND Radiology Radiation Oncology
DX: C50.111 Malignant neoplasm of central portion of right female breast (principal)

== ENCOUNTER 2018-12-02 12:49 | Outpatient (RCR) | payer OTHER ==
--- NOTE | 2018-11-26 09:05 | RADONC ---
RADIATION ONCOLOGY PROGRESS NOTE DATE: 11/25/2018 CHART #: [id number] Mrs. Jimenez with a diagnosis of breast cancer is currently receiving local regional radiotherapy to the right chest wall and right supraclavicular area. Her current dose is 4860 cGy of an anticipated 5040 cGy. Thereafter, she will receive an additional 900 cGy to a chest wall boost. Thus far, she has tolerated her radiotherapy reasonably well, denying any nausea, vomiting, coughing, sputum production or hemoptysis. Her energy level is such that she is able to maintain most of her day-to-day activities without any alteration of her lifestyle. She does have skin reaction, a mild to moderate skin reaction, but after having used the Silvadene cream this issue has largely improved. No other issues related to her treatments are reported. EXAMINATION FINDINGS: The skin within the irradiated volume shows a brisk erythematous blush without focal desquamation. There is no palpable peripheral lymphadenopathy. Lungs are clear. Heart regular without murmurs. Abdomen negative. IMPRESSION: Tolerating therapy well. PLAN: Treatments to continue.
--- NOTE | 2018-12-04 14:19 | RADONC ---
RADIATION ONCOLOGY TREATMENT SUMMARY DATE: 12/02/2018 CHART NUMBER: [id number] DIAGNOSIS: Right breast cancer. STAGE: IA, TA1c, N0, M0. ECOG PERFORMANCE STATUS: 0. TREATMENT SUMMARY: Ms. Jimenez is a very pleasant 52-year-old white female with the diagnosis of what appears to be a stage IA, T1c, N0, M0, infiltrating ductal carcinoma of the right breast who presented to us status post modified radical mastectomy and chemotherapy for consideration of postoperative radiation therapy. We treated the patient to the right chest wall for a total dose of 5040 cGy delivered in 28 fractions of 180 cGy each over 48 elapsed days from 10/08/2018 through 11/25/2018. The patient's right chest wall was treated on the linear accelerator utilizing a 3-D conformal technique with combination of 15 X and 6 X photons. Following completion of 5040 cGy to the entire chest wall the primary site was treated for an additional 900 cGy delivered in five fractions of 180 cGy each over six elapsed days from 11/26/2018 through 12/02/2018. This brought the primary site to a total dose of 5940 cGy delivered in 33 fractions over 54 elapsed days from 10/08/2018 through 12/02/2018. In addition, we treated these lymph node drainage sites for a dose of 4860 cGy delivered in 27 fractions of 180 cGy each over 45 elapsed days from 10/08/2018 through 11/22/2018. The lymph node drainage sites were treated utilizing a combination of 6 X and 15 X photons and a 3-D conformal technique. Ms. Jimenez tolerated her treatments quite well and was able complete therapy as prescribed. She is scheduled to see me again in 1 month for further followup and will continue to be followed by her other physicians as well. cc: MD Domenic Raman MD Edward J Wyluda, DO
== END 2018-12-16 ==
LOC: M ONCR 12:49
PROVIDERS: ATTEND Radiology Radiation Oncology
DX: C50.111 Malignant neoplasm of central portion of right female breast (principal)

== ENCOUNTER → 2019-01-01 | Outpatient (CLI) | payer OTHER ==
--- NOTE | 2019-01-02 14:36 | RADONC ---
RADIATION ONCOLOGY FOLLOWUP NOTE DATE: 01/01/2019 CHART NUMBER: [id number] DIAGNOSIS: Right breast cancer. STAGE: IA, [id number]. ECOG PERFORMANCE STATUS: 0. FOLLOWUP NOTE: Ms. Jimenez is a very pleasant 53-year-old white female with the diagnosis of a stage IA, [id number], moderately differentiated invasive ductal carcinoma of the right breast who is presenting to us today for routine followup visit 1 month post completion of external beam radiation therapy. The patient presents today reporting that she is doing quite well with no complaints at this time related to her radiation therapy or disease. She has no chest wall discomfort or other problems. The patient's review of systems is noncontributory. She denies nausea, vomiting, fevers, chills, night sweats, diplopia, headaches, anxiety or depression, anorexia, weight loss, visual disturbances, chest pain, urinary or bowel difficulties, bone pain, or neurological problems. PHYSICAL EXAMINATION: The patient is a well-developed, well-nourished, female in no acute distress. HEENT exam is normocephalic, atraumatic. Extraocular movements are intact. There is no palpable cervical, supraclavicular, infraclavicular, axillary, or inguinal lymphadenopathy present. Lungs are clear to auscultation and percussion. Heart has a regular rate and rhythm. Abdomen is benign with no hepatosplenomegaly, masses, or tenderness. Breast examination reveals bilateral mastectomy scars present. There is no evidence of nodularity, ulceration, or recurrent disease. Skeletal examination reveals no tenderness to pressure or percussion of the bony skeleton. Extremities reveal no clubbing, cyanosis, or edema. Neurologic exam is grossly intact, as is the remainder of the physical examination. ASSESSMENT: The patient is clinically GILBERTO at this time. She is being followed closely by her other physicians and is therefore being discharged from my followup except on an as needed basis. cc: MD Keith Raman,
== END ==
LOC: M ONCR 13:55
PROVIDERS: ATTEND Radiology Radiation Oncology
DX: C50.111 Malignant neoplasm of central portion of right female breast (principal)

== ENCOUNTER → 2019-12-12 | Outpatient (CLI) | payer OTHER ==
[2019-12-12 07:24] LABS: HEMATOCRIT 44.4 % (36.0-47.0); HEMOGLOBIN 14.6 g/dl (12.0-15.5); MEAN CORPUSCULAR HEMOGLOBIN 28.6 pg (27.0-33.0); MEAN CORPUSCULAR HGB CONC 32.9 g/dl (32.0-36.5); MEAN CORPUSCULAR VOLUME 86.9 fl (80.0-96.0); PLATELET COUNT, AUTOMATED 273 10^3/uL (150-450); RED BLOOD COUNT 5.11 10^6/uL (4.00-5.40); WHITE BLOOD COUNT 5.7 10^3/uL (4.0-10.0)
[2019-12-12 07:47] LABS: ALBUMIN 3.9 GM/DL (3.2-5.2); ALT/SGPT 20 U/L (12-78); BILIRUBIN,TOTAL 0.4 MG/DL (0.2-1.0); BLOOD UREA NITROGEN 14 MG/DL (7-18); CALCIUM LEVEL 9.5 MG/DL (8.5-10.1); CARBON DIOXIDE LEVEL 28 MEQ/L (21-32); CHLORIDE LEVEL 108 MEQ/L (98-107); CHOLESTEROL LEVEL 195 MG/DL (<200); CHOLESTEROL RISK RATIO 2.671 (<5); CREATININE FOR GFR 0.77 MG/DL (0.55-1.30); FERRITIN 48 NG/ML (8-252); GLOMERULAR FILTRATION RATE > 60.0 (>51); GLUCOSE, FASTING 88 MG/DL (70-100); HDL CHOLESTEROL 73 MG/DL (>40); LDL CHOLESTEROL 109 MG/DL (<100); NON-HDL-C 122 MG/DL; PHOSPHORUS LEVEL 4.3 MG/DL (2.5-4.9); SODIUM LEVEL 143 MEQ/L (136-145); TOTAL PROTEIN 7.4 GM/DL (6.4-8.2); TRIGLYCERIDES LEVEL 63 MG/DL (<150)
[2019-12-12 10:09] LABS: HEMOGLOBIN A1c 5.1 %
[2019-12-12 10:54] LABS: FOLATE 8.2 NG/ML (>5.4); TOTAL 25(OH) VITAMIN D 44.4 NG/ML (30.0-100.0); VITAMIN B12 LEVEL 238 PG/ML (247-911)
== END ==
LOC: M LAB 06:49
PROVIDERS: ATTEND Family Medicine
DX: K91.2 Postsurgical malabsorption, not elsewhere classified (principal); D50.9 Iron deficiency anemia, unspecified; E55.9 Vitamin D deficiency, unspecified

== ENCOUNTER → 2019-12-17 | Outpatient (RCR) | payer OTHER | LOC: M PT 12-12 16:15 | PROVIDERS: ATTEND Surgery | DX: C50.911 Malignant neoplasm of unspecified site of right female breast (principal) ==

== ENCOUNTER 2020-01-02 16:30 | Outpatient (RCR) | payer OTHER | END 2020-01-17 | LOC: M PT 16:30 | PROVIDERS: ATTEND Surgery | DX: C50.911 Malignant neoplasm of unspecified site of right female breast (principal); Z91.89 Other specified personal risk factors, not elsewhere classified ==

== ENCOUNTER → 2020-09-24 | Outpatient (CLI) | payer OTHER | LOC: M PLARAD 08:39 | PROVIDERS: ATTEND Internal Medicine | DX: C50.111 Malignant neoplasm of central portion of right female breast (principal) ==

== ENCOUNTER → 2020-09-24 | Outpatient (CLI) | payer OTHER | LOC: M PLAIMG 10:41 | PROVIDERS: ATTEND Internal Medicine | DX: C50.111 Malignant neoplasm of central portion of right female breast (principal) ==

== ENCOUNTER → 2020-11-02 | Outpatient (CLI) | payer OTHER ==
--- NOTE | 2020-11-02 15:36 | DEXAMM ---
INDICATION: C50.111. COMPARISON: 11/01/2018. TECHNIQUE: Bone density was measured using dual-energy x-ray absorptiometry (DEXA). FINDINGS: AP SPINE L1-L4 BMD 1.207 g/cm2 Young Adult T-Score 0.1 Age Matched Z-Score 0.9. LT FEMUR, TOTAL BMD 0.914 g/cm2 Young Adult T-Score -0.7 Age Matched Z-Score -0.1. LT NECK BMD 0.830 g/cm2 Young Adult T-Score -1.5 Age Matched Z-Score -0.5. RT FEMUR, TOTAL BMD 0.956 g/cm2 Young Adult T-Score -0.4 Age Matched Z-Score 0.2. RT NECK BMD 0.875 g/cm2 Young Adult T-Score -1.2 Age Matched Z-Score -0.2. IMPRESSION: There is normal bone density of the spine. There is low bone density of the left hip. There is low bone density of the right hip. The density of the spine has decreased 3.7% since the initial exam on 11/01/2018. The density of the left hip has increased 2.1% since initial exam on 11/01/2018. The density of the right hip has increased 2.5% since the initial exam on 11/01/2018. FOLLOW-UP: Recommendation for the next bone density exam: 2 years. <Electronically signed by Simone Kent > 11/02/20 [id number]
== END ==
LOC: M WHC 09:53
PROVIDERS: ATTEND Internal Medicine
DX: C50.111 Malignant neoplasm of central portion of right female breast (principal)

== ENCOUNTER → 2021-05-03 | Outpatient (REF) | payer OTHER | LOC: M SFHCPLAZ 12:54 | PROVIDERS: ATTEND Physician Assistant | DX: R39.9 Unspecified symptoms and signs involving the genitourinary system (principal) ==

== ENCOUNTER → 2022-08-31 | Outpatient (REF) | payer OTHER ==
[2022-08-31 11:21] LABS: LIPASE 31 U/L (12-53)
[2022-08-31 11:23] LABS: ALKALINE PHOSPHATASE 74 U/L (46-116); ALT/SGPT 22 U/L (7.0-40); AST/SGOT 11 U/L (<34); BILIRUBIN,TOTAL 0.5 MG/DL (0.3-1.2); BLOOD UREA NITROGEN 16 MG/DL (9-23); CARBON DIOXIDE LEVEL 28 MMOL/L (20-31); CHLORIDE LEVEL 105 MMOL/L (98-107); CHOLESTEROL LEVEL 189 MG/DL (<200); CHOLESTEROL RISK RATIO 3.46 (<5); CREATININE FOR GFR 0.74 MG/DL (0.55-1.30); GLOMERULAR FILTRATION RATE > 60.0 (>51); GLUCOSE, FASTING 78 MG/DL (60-100); HDL CHOLESTEROL 54.5 MG/DL (>40); LDL CHOLESTEROL 111.3 MG/DL (<100); NON-HDL-C 134.5 MG/DL; SODIUM LEVEL 139 MMOL/L (136-145); TOTAL PROTEIN 7.1 G/DL (5.7-8.2); TRIGLYCERIDES LEVEL 116 MG/DL (<150)
[2022-08-31 11:24] LABS: THYROID STIMULATING HORMONE 1.813 uIU/ML (0.55-4.78)
[2022-08-31 11:25] LABS: FREE T4 1.01 NG/DL (0.89-1.76); TOTAL 25(OH) VITAMIN D 28.7 NG/ML (20.0-100.0); VITAMIN B12 LEVEL 334 PG/ML (211-911)
[2022-08-31 11:44] LABS: BASO % 0.6 % (0.0-1.0); EOS # 0.1 10^3/uL (0.0-0.5); EOS % 1.7 % (0.0-3.0); HEMATOCRIT 43.2 % (36.0-47.0); HEMOGLOBIN 14.3 g/dl (12.0-15.5); LYMPH # 2.9 10^3/uL (1.5-5.0); LYMPH % 40.4 % (24.0-44.0); MEAN CORPUSCULAR HEMOGLOBIN 28.6 pg (27.0-33.0); MEAN CORPUSCULAR HGB CONC 33.1 g/dl (32.0-36.5); MEAN CORPUSCULAR VOLUME 86.4 fl (80.0-96.0); MONO # 0.6 10^3/uL (0.0-0.8); MONO % 8.8 % (2.0-8.0); NEUTROPHILS # 3.5 10^3/uL (1.5-8.5); NEUTROPHILS % 48.4 % (36.0-66.0); PLATELET COUNT, AUTOMATED 331 10^3/uL (150-450); WHITE BLOOD COUNT 7.2 10^3/uL (4.0-10.0)
[2022-08-31 11:47] LABS: HEMOGLOBIN A1c 5.2 % (4.0-6.0)
== END ==
LOC: M SFHCPLAZ 10:37
PROVIDERS: ATTEND Physician Assistant
DX: Z00.00 Encounter for general adult medical examination without abnormal findings (principal); E55.9 Vitamin D deficiency, unspecified; Z13.220 Encounter for screening for lipoid disorders

== ENCOUNTER → 2022-11-03 | Outpatient (CLI) | payer OTHER | LOC: M WHC 09:29 | PROVIDERS: ATTEND Internal Medicine | DX: C50.111 Malignant neoplasm of central portion of right female breast (principal) ==

== ENCOUNTER → 2023-09-05 | Outpatient (REF) | payer OTHER | LOC: M SFHCPLAZ 14:52 | PROVIDERS: ATTEND Physician Assistant Medical | DX: J02.0 Streptococcal pharyngitis (principal) ==

== ENCOUNTER → 2023-09-17 | Outpatient (CLI) | payer OTHER ==
[2023-09-17 11:34] LABS: BASO % 0.3 % (0.0-1.0); EOS # 0.1 10^3/uL (0.0-0.5); EOS % 1.4 % (0.0-3.0); HEMATOCRIT 43.6 % (36.0-47.0); HEMOGLOBIN 14.1 g/dl (12.0-15.5); LYMPH # 3.6 10^3/uL (1.5-5.0); LYMPH % 39.8 % (24.0-44.0); MEAN CORPUSCULAR HEMOGLOBIN 28.3 pg (27.0-33.0); MEAN CORPUSCULAR HGB CONC 32.3 g/dl (32.0-36.5); MEAN CORPUSCULAR VOLUME 87.4 fl (80.0-96.0); MONO # 0.7 10^3/uL (0.0-0.8); MONO % 8.2 % (2.0-8.0); NEUTROPHILS # 4.5 10^3/uL (1.5-8.5); NEUTROPHILS % 49.9 % (36.0-66.0); PLATELET COUNT, AUTOMATED 379 10^3/uL (150-450); RED BLOOD COUNT 4.99 10^6/uL (4.00-5.40)
[2023-09-17 11:55] LABS: HEMOGLOBIN A1c 5.3 % (4.0-6.0)
[2023-09-17 12:11] LABS: FREE T4 1.13 NG/DL (0.89-1.76)
[2023-09-17 12:12] LABS: FERRITIN 94.6 NG/ML (7.3-270.7); IRON (FE) 172 UG/DL (50-170); THYROID STIMULATING HORMONE 1.566 uIU/ML (0.55-4.78)
[2023-09-17 12:13] LABS: ALBUMIN 3.8 G/DL (3.2-5.2); ALKALINE PHOSPHATASE 70 U/L (46-116); ALT/SGPT 23 U/L (7.0-40); AST/SGOT 12 U/L (<34); BILIRUBIN,TOTAL 0.6 MG/DL (0.3-1.2); BLOOD UREA NITROGEN 17 MG/DL (9-23); CALCIUM LEVEL 9.6 MG/DL (8.5-10.1); CARBON DIOXIDE LEVEL 30 MMOL/L (20-31); CHLORIDE LEVEL 106 MMOL/L (98-107); CHOLESTEROL LEVEL 165 MG/DL (<200); CHOLESTEROL RISK RATIO 4.09 (<5); CREATININE FOR GFR 0.76 MG/DL (0.55-1.30); GLOMERULAR FILTRATION RATE > 60.0 (>51); GLUCOSE, FASTING 106 MG/DL (60-100); HDL CHOLESTEROL 40.3 MG/DL (>40); LDL CHOLESTEROL 96.1 MG/DL (<100); NON-HDL-C 124.7 MG/DL; PERCENT SATURATION 55.3 % (13.2-45.0); SODIUM LEVEL 141 MMOL/L (136-145); TOTAL IRON BINDING CAPACITY 311 UG/DL (250-425); TOTAL PROTEIN 7.5 G/DL (5.7-8.2); TRIGLYCERIDES LEVEL 143 MG/DL (<150)
[2023-09-17 12:15] LABS: VITAMIN B12 LEVEL > 2000 PG/ML (211-911)
[2023-09-17 13:40] LABS: TOTAL 25(OH) VITAMIN D 39.4 NG/ML (20.0-100.0)
== END ==
LOC: M PLALAB 07:05
PROVIDERS: ATTEND Physician Assistant
DX: E61.1 Iron deficiency (principal)

== ENCOUNTER → 2024-10-27 | Outpatient (CLI) | payer OTHER ==
[~2024-10-27] MED LIST changes: +PROHANCE 279.3MG/ML 15ML VIAL ONE; +PROHANCE 279.3MG/ML 5ML VIAL ONE
== END ==
LOC: M PLAIMG 10:25
PROVIDERS: ATTEND Nurse Practitioner Family
DX: Z15.09 Genetic susceptibility to other malignant neoplasm (principal); K86.89 Other specified diseases of pancreas
CPT/HCPCS: 74183; A9576

== ENCOUNTER → 2024-11-04 | Outpatient (CLI) | payer OTHER ==
[~2024-11-04] MED LIST changes: -PROHANCE 279.3MG/ML 15ML VIAL ONE; -PROHANCE 279.3MG/ML 5ML VIAL ONE
== END ==
LOC: M WHC 10:02
PROVIDERS: ATTEND Internal Medicine
DX: C50.111 Malignant neoplasm of central portion of right female breast (principal); M85.89 Other specified disorders of bone density and structure, multiple sites

== ENCOUNTER → 2024-12-31 | Outpatient (CLI) | payer OTHER ==
[~2024-12-31] MED LIST changes: +ISOVUE-370 76% 100 ML VIAL As Ordered ONE
== END ==
LOC: M RAD 14:38
PROVIDERS: ATTEND Urology
DX: R31.21 Asymptomatic microscopic hematuria (principal); R93.5 Abnormal findings on diagnostic imaging of other abdominal regions, including retroperitoneum
CPT/HCPCS: 74178; Q9967